=== PATIENT | female | born 1955 | race Caucasian/White ===

== ENCOUNTER 2020-01-09 15:14 | Emergency (ER) | payer MEDICARE ==
[~2020-01-09] VITALS: Ht 160 cm; Wt 99.3 kg
[2020-01-09] MEDS ORDERED: SODIUM CHLORIDE 0.9% 1000ML 1,000 ML IV STA (15:32)
[2020-01-09] MEDS ORDERED: MORPHINE SULFATE 2 MG/ML SYR 1ML IV STA (15:32)
[2020-01-09] MEDS ORDERED: ONDANSETRON HCL INJ 2MG/ML 2ML 2 MG/ML VIAL IV NR (15:45)
[2020-01-09 16:20] LABS: BASOPHILS # (AUTO) 0.1 (0.0-0.1); BASOPHILS % 0.4 % (0.0-1.0); EOSINOPHILS # (AUTO) 0.4 (0.0-0.4); EOSINOPHILS % 3.2 % (0.0-6.0); HEMATOCRIT 45.9 % (34.2-44.1); HEMOGLOBIN 15.6 g/dL (12.0-16.0); LYMPHOCYTES # (AUTO) 3.2 (1.0-3.2); LYMPHOCYTES % 28.8 % (18.0-39.1); MEAN CORPUSCULAR HEMOGLOBIN 31.1 pg (28-32); MEAN CORPUSCULAR VOLUME 91.4 fL (81-99); MONOCYTES # (AUTO) 0.9 (0.2-0.8); MONOCYTES % 8.3 % (4.4-11.3); NEUTROPHILS # (AUTO) 6.6 (2.1-6.9); NEUTROPHILS % 58.9 % (38.7-80.0); PLATELET COUNT 298 x10e3/uL (140-360); RED BLOOD COUNT 5.02 x10e6/uL (3.6-5.1); RED CELL DISTRIBUTION WIDTH 12.2 % (11.7-14.4)
[2020-01-09 16:28] LABS: CLARITY,URINE SL CLOUDY (CLEAR); COLOR,URINE YELLOW (YELLOW)
[2020-01-09 16:29] LABS: BILIRUBIN,URINE NEGATIVE (NEGATIVE); KETONES,URINE NEGATIVE (NEGATIVE); LEUKOCYTE ESTERASE ,URINE TRACE (NEGATIVE); NITRITE,URINE NEGATIVE (NEGATIVE); PROTEIN,URINE DIPSTICK NEGATIVE (NEGATIVE); URINE UROBILINOGEN 1 mg/dL (0.2 - 1)
[2020-01-09 16:31] LABS: BACTERIA,URINE RARE /HPF; EPITHELIAL CELLS,URINE FEW /LPF; RBC,URINE 0-5 /HPF (0-5); WBC,URINE (MAN) 0-5 /HPF (0-5)
[2020-01-09 16:32] LABS: INR 0.85
[2020-01-09 16:37] LABS: ALANINE AMINOTRANSFERASE 13 IU/L (0-55); ALBUMIN 3.7 g/dL (3.5-5.0); ALBUMIN/GLOBULIN RATIO 0.9 (0.8-2.0); ALKALINE PHOSPHATASE 113 IU/L (40-150); ANION GAP 16.1 mmol/L (8-16); BLOOD UREA NITROGEN 17 mg/dL (7-26); BUN/CREATININE RATIO 20 (6-25); CALCIUM 8.7 mg/dL (8.4-10.2); CARBON DIOXIDE 27 mmol/L (22-29); CHLORIDE 102 mmol/L (98-107); CREATININE, SERUM 0.87 mg/dL (0.57-1.11); EST GLOMERULAR FILTRATION RATE > 60 ML/MIN (60-); GLUCOSE 126 mg/dL (74-118); LIPASE 25 U/L (8-78); POTASSIUM 4.1 mmol/L (3.5-5.1); SODIUM 141 mmol/L (136-145)
[2020-01-09] MEDS ORDERED: SODIUM CHLORIDE 0.9% 50ML 50 ML ONE (17:03)
[2020-01-09] MEDS ORDERED: IOPAMIDOL 370 MG/ML 200 ML INFUS..BTL INJ ONE (17:03)
--- NOTE | 2020-01-09 17:09 | Emergency Department Note ---
History of Present Illnes History of Present Illness Chief Complaint: Abdominal Complaints History of Present Illness This is a 64 year old female X 1 WEEK EXCORIATION ON TOP OF UROSTOMY DRESSING. STATES, "IT STARTED OFF 3 BLISTERS". SHARP, DEEP PAIN THAT RUNS FROM FRONT OF ABDOMEN THROUGH TO THE BACK. 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 Any updates have been documented here. Past Medical History Recent Fever: No Clinical Suspicion of Infectio: No New/Unexplained Change in Ment: No Past Medical History: Hypertension Past Surgical History: Cholecysctectomy, Appendectomy, Hysterectomy Other Surgery: UROSTOMY Social History Smoking Cessation: Never Smoker Counseling Performed: No Alcohol Use: None Any Illegal Drug Use: No Physically hurt or threatened: No Family History Family history of heart diseas: No Other Any Pre-Existing Lines (PICC,: No Review of Systems Review of Systems Constitutional: Reports no symptoms EENTM: Reports no symptoms Cardiovascular: Reports no symptoms Respiratory: Reports no symptoms Gastrointestinal: Reports as per HPI Genitourinary: Reports no symptoms Musculoskeletal: Reports no symptoms Integumentary: Reports as per HPI Neurological: Reports no symptoms Psychological: Reports no symptoms Endocrine: Reports no symptoms Hematological/Lymphatic: Reports no symptoms Physical Exam Related Data Triage Vital Signs Vital Signs Date Time Temp Pulse Resp B/P (MAP) Pulse Ox O2 Delivery O2 Flow Rate FiO2 01/09/20 15:23 97.9 86 18 157/72 98 Room Air Vital signs reviewed: Yes Physical Exam CONSTITUTIONAL Constitutional: Present well-developed, Present well-nourished, Present morbidly obese HENT HENT: Present normocephalic, Present atraumatic, Present oropharynx clear/moist, Present nose normal HENT L/R: Present left ext ear normal, Present right ext ear normal EYES Eyes: Reports PERRL, Reports conjunctivae normal NECK Neck: Present ROM normal PULMONARY Pulmonary: Present effort normal, Present breath sounds normal CARDIOVASCULAR Cardiovascular: Present regular rhythm, Present heart sounds normal, Present capillary refill normal, Present normal rate GASTROINTESTINAL Abdominal: Present soft, Present bowel sounds normal, Present other (ERYTHEMA AT SUPERIOR BORDER OF ILEOSTOMY BAG WITH TENDERNESS); Absent guarding GENITOURINARY Genitourinary: Present exam deferred SKIN Skin: Present warm, Present dry MUSCULOSKELETAL Musculoskeletal: Present ROM normal NEUROLOGICAL Neurological: Present alert, Present oriented x 3, Present no gross motor or sensory deficits PSYCHOLOGICAL Psychological: Present mood/affect normal, Present judgement normal Results Laboratory Result Diagram: 01/09/20 1500 01/09/20 1500 Laboratory Laboratory Tests Test 01/09/20 15:00 White Blood Count 11.15 x10e3/uL (4.8-10.8) Red Blood Count 5.02 x10e6/uL (3.6-5.1) Hemoglobin 15.6 g/dL (12.0-16.0) Hematocrit 45.9 % (34.2-44.1) Mean Corpuscular Volume 91.4 fL (81-99) Mean Corpuscular Hemoglobin 31.1 pg (28-32) Mean Corpuscular Hemoglobin Concent 34.0 g/dL (31-35) Red Cell Distribution Width 12.2 % (11.7-14.4) Platelet Count 298 x10e3/uL (140-360) Neutrophils (%) (Auto) 58.9 % (38.7-80.0) Lymphocytes (%) (Auto) 28.8 % (18.0-39.1) Monocytes (%) (Auto) 8.3 % (4.4-11.3) Eosinophils (%) (Auto) 3.2 % (0.0-6.0) Basophils (%) (Auto) 0.4 % (0.0-1.0) Neutrophils # (Auto) 6.6 (2.1-6.9) Lymphocytes # (Auto) 3.2 (1.0-3.2) Monocytes # (Auto) 0.9 (0.2-0.8) Eosinophils # (Auto) 0.4 (0.0-0.4) Basophils # (Auto) 0.1 (0.0-0.1) Absolute Immature Granulocyte (auto 0.05 x10e3/uL (0-0.1) Prothrombin Time 12.0 seconds (11.9-14.5) Prothromb Time International Ratio 0.85 Activated Partial Thromboplast Time 28.0 seconds (23.8-35.5) Urine Color Yellow (YELLOW) Urine Clarity Sl cloudy (CLEAR) Urine pH 7.5 (5 - 7) Urine Specific [place] 1.025 (1.010-1.025) Urine Protein Negative (NEGATIVE) Urine Glucose (UA) Negative (NEGATIVE) Urine Ketones Negative (NEGATIVE) Urine Blood Negative (NEGATIVE) Urine Nitrite Negative (NEGATIVE) Urine Bilirubin Negative (NEGATIVE) Urine Urobilinogen 1 mg/dL (0.2 - 1) Urine Leukocyte Esterase Trace (NEGATIVE) Urine RBC 0-5 /HPF (0-5) Urine WBC 0-5 /HPF (0-5) Urine Epithelial Cells Few /LPF (NONE) Urine Bacteria Rare /HPF (NONE) Sodium Level 141 mmol/L (136-145) Potassium Level 4.1 mmol/L (3.5-5.1) Chloride Level 102 mmol/L (98-107) Carbon Dioxide Level 27 mmol/L (22-29) Anion Gap 16.1 mmol/L (8-16) Blood Urea Nitrogen 17 mg/dL (7-26) Creatinine 0.87 mg/dL (0.57-1.11) Estimat Glomerular Filtration Rate > 60 ML/MIN (60-) BUN/Creatinine Ratio 20 (6-25) Glucose Level 126 mg/dL (74-118) Calcium Level 8.7 mg/dL (8.4-10.2) Total Bilirubin 0.2 mg/dL (0.2-1.2) Aspartate Amino Transf (AST/SGOT) 11 IU/L (5-34) Alanine Aminotransferase (ALT/SGPT) 13 IU/L (0-55) Alkaline Phosphatase 113 IU/L (40-150) Total Protein 7.6 g/dL (6.5-8.1) Albumin 3.7 g/dL (3.5-5.0) Globulin 3.9 g/dL (2.3-3.5) Albumin/Globulin Ratio 0.9 (0.8-2.0) Lipase 25 U/L (8-78) Lab results reviewed: Yes Imaging Imaging results reviewed: Yes Impressions CT ABD/PELVIS: IMPRESSION: 1. Bilateral diverting urostomy with no evidence of hydroureteronephrosis. No obstructive renal or ureteral stones. Correlate with urinalysis for infection and consider urology consultation. 2. Post interval changes of ileostomy. No evidence of bowel obstruction or inflammation. No acute abdominopelvic abdomen was identified. 3. An indeterminate 3.8 x 2.0 cm right adrenal nodule which measures [address] or MRI of the abdomen (adrenal mass protocol) for further characterization. 4. Hepatic steatosis. Signed by: Jayro Cardona MD on 01/09/2020 6:13 PM Assessment & Plan Medical Decision Making MDM ABD PAIN - APPEARS TO BE LOCAL TO UROSTOMY BAG WITH EXCORIATED/MACERATED SKIN WHERE HER PANNUS FOLDS OVER AT TOP EDGE OF UROSTOMY WAFER - CHECK CBC, CHEM, CT ABD/PELVIS, UA/CX - R/O COLITIS, INTRA-ABDOMINAL INFECTION/ABSCESS, CELLULITIS/FUNGAL INFECTION OF SKIN, UTI/PYELO Reassessment Reassessment DC HOME, NYSTATIN/TAC CREAM TO AREA BID, KEFLEX 500 QID X 10 DAYS, F/U PCP, RTED PRN Assessment & Plan Final Impression: (1) Intertrigo (2) Cellulitis Depart Disposition: HOME, SELF-CARE Last Vital Signs Date Time Temp Pulse Resp B/P (MAP) Pulse Ox O2 Delivery O2 Flow Rate FiO2 01/09/20 15:23 97.9 86 18 157/72 98 Room Air Medications in the ED Morphine Sulfate 4 mg ONCE STAT IV Last administered on 01/09/20at 16:30; Admin Dose 4 MG; Start 01/09/20 at 15:32; Stop 01/09/20 at 15:35; Status DC Ondansetron HCl 4 mg ONCE IV Last administered on 01/09/20at 16:37; Admin Dose 4 MG; Start 01/09/20 at 15:45; Stop 01/09/20 at 16:59; Status DC Sodium Chloride 1,000 ml @ 0 mls/hr Q0M STAT IV Last administered on 01/09/20at 16:36; Admin Dose 999 MLS/HR; Start 01/09/20 at 15:32; Stop 01/09/20 at 15:34; Status DC Sodium Chloride [address]-MED ONCE .ROUTE ; Start 01/09/20 at 17:03; Stop 01/09/20 at 16:56; Status DC Iopamidol 74,000 mg STK-MED ONCE INJ ; Start 01/09/20 at 17:03; Stop 01/09/20 at 16:56; Status DC MERLE HATHAWAY MD Jan 09, 2020 17:09
--- NOTE | 2020-01-09 18:17 | Diagnostic Imaging Report ---
EXAM: CT Abdomen and Pelvis WITH contrast INDICATION: ^DIVERTING UROSTOMY, RIGHT ABD PAIN/FLANK PAIN ^[id number] ^[id number] COMPARISON: None. TECHNIQUE: Abdomen and pelvis were scanned utilizing a multidetector helical scanner from the lung base to the pubic symphysis after administration of IV contrast. Coronal and sagittal reformations were obtained. Routine protocol was performed. Scan was performed when during portal venous phase. IV CONTRAST: 100 mL of Isovue 370 ORAL CONTRAST: None COMPLICATIONS: None RADIATION DOSE: Total DLP: 814 mGy*cm Estimated effective dose: (DLP x 0.015 x size factor) mSv CTDIvol has been reviewed. It is below the limits set by the Radiation Protocol Committee (RPC). Dose modulation, iterative reconstruction, and/or weight based adjustment of the mA/kV was utilized to reduce the radiation dose to as low as reasonably achievable. FINDINGS: LINES and TUBES: None. LOWER THORAX: Unremarkable HEPATOBILIARY: The liver is diffuse hypodense compared to the spleen, consistent with diffuse hepatic diffuse hepatic steatosis. No focal hepatic lesions. There is intra- and extra- hepatic biliary dilation likely post cholecystectomy reservoir effect. GALLBLADDER: There are cholecystectomy clips. SPLEEN: No splenomegaly. PANCREAS: No focal masses or ductal dilatation. ADRENALS: There is a 3.8 x 2.0 cm right adrenal nodule which measures 51 HU. The left adrenal gland is normal. KIDNEYS/URETERS: Kidneys enhance symmetrically. No hydronephrosis. 8 mm cyst in the inferior pole of the left kidney. Otherwise no cystic or solid mass lesions. The bilateral ureters are connected to small bowel loop, compatible with diverting urostomy. GI TRACT: There are post surgical changes of right lower quadrant ileostomy. No abnormal distention, wall thickening, or evidence of bowel obstruction. Appendix is normal. PELVIC ORGANS/BLADDER: The urinary bladder is not seen, likely surgically removed.. LYMPH NODES: No lymphadenopathy. VESSELS: There is moderate atherosclerotic disease in the aorta and major arterial branches. PERITONEUM / RETROPERITONEUM: No free air or fluid. BONES: There are degenerative changes in the spine with grade 1 retrolisthesis of L2 on L3. SOFT TISSUES: Unremarkable. IMPRESSION: 1. Bilateral diverting urostomy with no evidence of hydroureteronephrosis. No obstructive renal or ureteral stones. Correlate with urinalysis for infection and consider urology consultation. 2. Post interval changes of ileostomy. No evidence of bowel obstruction or inflammation. No acute abdominopelvic abdomen was identified. 3. An indeterminate 3.8 x 2.0 cm right adrenal nodule which measures [address] or MRI of the abdomen (adrenal mass protocol) for further characterization. 4. Hepatic steatosis. Signed by: Jayro Cardona MD on 01/09/2020 6:13 PM
== END 2020-01-09 18:49 | disposition home or self-care (01) ==
LOC: ER 15:26
DX: L03.311 Cellulitis of abdominal wall (principal); I10 Essential (primary) hypertension; Z93.6 Other artificial openings of urinary tract status
CPT/HCPCS: 36415; 74177; 80053; 81001; 83690; 85025; 85610; 85730; 87040; 87086; 87186; 99284; J2270; J2405; J7030; Q9967

== ENCOUNTER → 2020-04-03 | Emergency (ER) | payer MEDICARE ==
[~2020-04-03] VITALS: Ht 160 cm; Wt 99.3 kg
== END | disposition home or self-care (01) ==
LOC: ER 13:45
DX: J40 Bronchitis, not specified as acute or chronic (principal); R05 Cough; I10 Essential (primary) hypertension; J44.9 Chronic obstructive pulmonary disease, unspecified; F17.210 Nicotine dependence, cigarettes, uncomplicated
CPT/HCPCS: 99283

== ENCOUNTER 2020-05-09 15:50 | Inpatient (IN) | payer MEDICARE ==
[~2020-05-09] VITALS: Ht 160 cm; Wt 99.3 kg
[2020-05-09 16:21] LABS: BASOPHILS # (AUTO) 0.1 (0.0-0.1); BASOPHILS % 0.7 % (0.0-1.0); EOSINOPHILS # (AUTO) 0.7 (0.0-0.4); EOSINOPHILS % 8.2 % (0.0-6.0); HEMATOCRIT 34.8 % (34.2-44.1); HEMOGLOBIN 11.5 g/dL (12.0-16.0); LYMPHOCYTES # (AUTO) 2.9 (1.0-3.2); LYMPHOCYTES % 36.2 % (18.0-39.1); MEAN CORPUSCULAR HEMOGLOBIN 31.5 pg (28-32); MEAN CORPUSCULAR VOLUME 95.3 fL (81-99); MONOCYTES # (AUTO) 0.7 (0.2-0.8); MONOCYTES % 8.7 % (4.4-11.3); NEUTROPHILS # (AUTO) 3.7 (2.1-6.9); NEUTROPHILS % 45.8 % (38.7-80.0); PLATELET COUNT 210 x10e3/uL (140-360); RED BLOOD COUNT 3.65 x10e6/uL (3.6-5.1); RED CELL DISTRIBUTION WIDTH 12.6 % (11.7-14.4)
[2020-05-09 16:39] LABS: ALBUMIN 3.1 g/dL (3.5-5.0); ANION GAP 15.4 mmol/L (8-16); CALCIUM 7.7 mg/dL (8.4-10.2); CREATININE, SERUM 1.63 mg/dL (0.57-1.11); POTASSIUM 4.4 mmol/L (3.5-5.1)
[2020-05-09] MEDS ORDERED: SODIUM CHLORIDE 0.9% 1000ML 1,000 ML IV SCH (16:45)
[2020-05-09] MEDS ORDERED: ATROPINE SULFATE 1 MG/ML VIAL IV ONE (17:15)
[2020-05-09] MEDS ORDERED: CALCIUM GLUCONATE 10% INJ 9.3 MEQ in SODIUM CHLORIDE 0.9% 100 ML 100 ML IV ONE (17:30)
[2020-05-09] MEDS ORDERED: CEFTRIAXONE SOD 1 GM/50 ML BAG IV ONE (17:45)
[2020-05-09] MEDS ORDERED: CEFTRIAXONE SOD 1 GM in SODIUM CHLORIDE 0.9% 50ML 50 ML IV ONE ×2 (18:00→18:30)
[2020-05-09 18:02] LABS: CLARITY,URINE CLOUDY (CLEAR); COLOR,URINE AMBER (YELLOW); KETONES,URINE TRACE (NEGATIVE); LEUKOCYTE ESTERASE ,URINE TRACE (NEGATIVE); NITRITE,URINE NEGATIVE (NEGATIVE); PROTEIN,URINE DIPSTICK 2+ (NEGATIVE); URINE UROBILINOGEN 1 mg/dL (0.2 - 1)
[2020-05-09 18:13] LABS: BACTERIA,URINE MANY /HPF
[2020-05-09 18:14] LABS: AMORPHOUS SEDIMENT,URINE FEW (FEW)
[2020-05-09] MEDS ORDERED: ALBUTEROL/IPRATROPIUM 3 ML NEB NEB ONE (20:00)
[2020-05-09] MEDS ORDERED: CARVEDILOL6.25 MG PO (22:49)
[2020-05-09] MEDS ORDERED: NABUMETONE750 MG PO (22:49)
[2020-05-09] MEDS ORDERED: PROAIR RESPICL90 MCG INH (22:49)
[2020-05-09] MEDS ORDERED: LOSARTAN POTASS50 MG PO (22:49)
[2020-05-09] MEDS ORDERED: ATORVASTATIN CA80 MG PO (22:49)
[2020-05-09] MEDS ORDERED: DULOXETINE HCL60 MG PO (22:49)
[2020-05-09] MEDS ORDERED: TIZANIDINE HCL4 MG PO (22:49)
[2020-05-09] MEDS ORDERED: LISINOPRIL40 MG PO (22:49)
[2020-05-09] MEDS ORDERED: CLOPIDOGREL75 MG PO (22:49)
[2020-05-09 23:20] VITALS: BP 150/63
[2020-05-09] MEDS ORDERED: CLONAZEPAM0.5 MG PO (23:30)
[2020-05-10] VITALS (15 sets, daily range): BP systolic 112–188; BP diastolic 53–76
[2020-05-10] MEDS ORDERED: MAGNESIUM/ALUMINUM/SIMETHICONE 30 ML UDC PO PRN (00:30)
[2020-05-10] MEDS ORDERED: MAGNESIUM HYDROXIDE 30 ML UDC PO PRN (00:30)
[2020-05-10] MEDS ORDERED: ZOLPIDEM TARTRATE 5 MG TAB PO PRN (00:30)
[2020-05-10] MEDS: GUAIFENESIN 200 MG/10 ML UDC PO PRN ×3 (01:12→19:35)
[2020-05-10 04:37] LABS: BASOPHILS # (AUTO) 0.1 (0.0-0.1); BASOPHILS % 0.7 % (0.0-1.0); EOSINOPHILS # (AUTO) 0.9 (0.0-0.4); EOSINOPHILS % 9.6 % (0.0-6.0); HEMATOCRIT 36.9 % (34.2-44.1); HEMOGLOBIN 12.3 g/dL (12.0-16.0); LYMPHOCYTES # (AUTO) 3.3 (1.0-3.2); LYMPHOCYTES % 36.8 % (18.0-39.1); MEAN CORPUSCULAR HEMOGLOBIN 31.5 pg (28-32); MEAN CORPUSCULAR HGB CONC 33.3 g/dL (31-35); MEAN CORPUSCULAR VOLUME 94.4 fL (81-99); MONOCYTES # (AUTO) 0.8 (0.2-0.8); MONOCYTES % 8.7 % (4.4-11.3); NEUTROPHILS % 43.8 % (38.7-80.0); PLATELET COUNT 220 x10e3/uL (140-360); RED BLOOD COUNT 3.91 x10e6/uL (3.6-5.1); RED CELL DISTRIBUTION WIDTH 12.5 % (11.7-14.4)
[2020-05-10 04:53] LABS: ANION GAP 16.4 mmol/L (8-16); CALCIUM 7.8 mg/dL (8.4-10.2); CREATININE, SERUM 1.04 mg/dL (0.57-1.11); POTASSIUM 4.4 mmol/L (3.5-5.1)
[2020-05-10] MEDS: ACETAMINOPHEN 325 MG TAB PO PRN (07:16)
[2020-05-10] MEDS ORDERED: NABUMETONE PO SCH (07:30)
[2020-05-10] MEDS: CARVEDILOL 3.125 MG TAB PO SCH ×2 (08:08→17:00)
[2020-05-10] MEDS: LOSARTAN POTASSIUM 25 MG TAB PO SCH (08:13)
[2020-05-10] MEDS: DULOXETINE HCL 30 MG DELAYED RELEASE PO SCH (09:13)
[2020-05-10] MEDS: CLOPIDOGREL BISULFATE 75 MG TAB PO SCH (09:13)
[2020-05-10] MEDS: TIZANIDINE HCL 4 MG TAB PO SCH ×2 (09:14→17:13)
[2020-05-10] MEDS: LISINOPRIL 20 MG TAB PO SCH (09:15)
[2020-05-10] MEDS: ALBUTEROL SULFATE HFA 8GM INHALATION AEROSOL INH PRN ×3 (10:48→19:40)
[2020-05-10] MEDS: NABUMETONE 750 MG PO SCH (11:40)
[2020-05-10] MEDS: CEFAZOLIN SOD 1 GM/NS 50ML 50 ML IV SCH ×2 (11:40→22:33)
[2020-05-10] MEDS ORDERED: SODIUM CHLORIDE 0.9% 50ML 50 ML ONE (11:52)
[2020-05-10] MEDS: ATORVASTATIN 40 MG TAB PO SCH (21:00)
[2020-05-10] MEDS: CLONAZEPAM 0.5 MG TAB PO SCH (21:00)
[2020-05-10] MEDS: ALBUTEROL/IPRATROPIUM 3 ML NEB NEB PRN (23:30)
[2020-05-11] VITALS (9 sets, daily range): BP systolic 94–209; BP diastolic 52–81
[2020-05-11] MEDS: GUAIFENESIN 200 MG/10 ML UDC PO PRN ×3 (01:51→23:18)
[2020-05-11] MEDS: ACETAMINOPHEN 325 MG TAB PO PRN (01:58)
[2020-05-11] MEDS: ALBUTEROL/IPRATROPIUM 3 ML NEB NEB PRN ×4 (04:15→21:05)
[2020-05-11] MEDS: LISINOPRIL 20 MG TAB PO SCH ×2 (07:43→16:28)
[2020-05-11] MEDS: LOSARTAN POTASSIUM 25 MG TAB PO SCH (07:46)
[2020-05-11] MEDS: CARVEDILOL 3.125 MG TAB PO SCH (09:00)
[2020-05-11] MEDS: NABUMETONE 750 MG PO SCH ×2 (09:43→16:28)
[2020-05-11] MEDS: DULOXETINE HCL 30 MG DELAYED RELEASE PO SCH (09:44)
[2020-05-11] MEDS: CLOPIDOGREL BISULFATE 75 MG TAB PO SCH (09:44)
[2020-05-11] MEDS: TIZANIDINE HCL 4 MG TAB PO SCH ×2 (09:44→16:29)
[2020-05-11] MEDS ORDERED: CLONIDINE HCL 0.1 MG TAB PO PRN (10:15)
[2020-05-11] MEDS: CEFAZOLIN SOD 1 GM/NS 50ML 50 ML IV SCH ×2 (10:54→21:18)
[2020-05-11] MEDS: CARVEDILOL 12.5 MG TAB PO SCH (16:28)
[2020-05-11] MEDS: ALBUTEROL SULFATE HFA 8GM INHALATION AEROSOL INH PRN (16:29)
[2020-05-11] MEDS: CLONAZEPAM 0.5 MG TAB PO SCH (21:16)
[2020-05-11] MEDS: ATORVASTATIN 40 MG TAB PO SCH (21:16)
[2020-05-11] MEDS ORDERED: METHYLPREDNISOLONE SOD SUCC 40 MG/ML VIAL 1ML IV ONE (22:00)
[2020-05-12] VITALS (9 sets, daily range): BP systolic 90–177; BP diastolic 47–88
[2020-05-12] MEDS: ALBUTEROL/IPRATROPIUM 3 ML NEB NEB PRN ×2 (01:00→09:24)
[2020-05-12] MEDS: ACETAMINOPHEN 325 MG TAB PO PRN (04:28)
[2020-05-12] MEDS: GUAIFENESIN 200 MG/10 ML UDC PO PRN (06:09)
[2020-05-12] MEDS: NABUMETONE 750 MG PO SCH ×2 (08:54→16:39)
[2020-05-12] MEDS: CLOPIDOGREL BISULFATE 75 MG TAB PO SCH (08:56)
[2020-05-12] MEDS: LISINOPRIL 20 MG TAB PO SCH ×2 (08:57→16:34)
[2020-05-12] MEDS: LOSARTAN POTASSIUM 25 MG TAB PO SCH (09:00)
[2020-05-12] MEDS: TIZANIDINE HCL 4 MG TAB PO SCH ×2 (09:00→16:39)
[2020-05-12] MEDS: CARVEDILOL 12.5 MG TAB PO SCH ×2 (09:00→16:34)
[2020-05-12] MEDS: DULOXETINE HCL 30 MG DELAYED RELEASE PO SCH (09:01)
[2020-05-12] MEDS ORDERED: AZITHROMYCIN 250 MG TAB PO NR (10:45)
[2020-05-12] MEDS: ALBUTEROL/IPRATROPIUM 3 ML NEB NEB SCH ×4 (11:00→23:00)
[2020-05-12] MEDS: CEFAZOLIN SOD 1 GM/NS 50ML 50 ML IV SCH ×2 (11:09→22:30)
[2020-05-12 13:45] LABS: BASOPHILS % 0.2 % (0.0-1.0); EOSINOPHILS % 0.1 % (0.0-6.0); HEMATOCRIT 39.4 % (34.2-44.1); HEMOGLOBIN 13.4 g/dL (12.0-16.0); LYMPHOCYTES # (AUTO) 1.7 (1.0-3.2); LYMPHOCYTES % 11.6 % (18.0-39.1); MEAN CORPUSCULAR HEMOGLOBIN 31.2 pg (28-32); MEAN CORPUSCULAR VOLUME 91.8 fL (81-99); MONOCYTES # (AUTO) 0.5 (0.2-0.8); MONOCYTES % 3.7 % (4.4-11.3); NEUTROPHILS # (AUTO) 12.3 (2.1-6.9); NEUTROPHILS % 83.6 % (38.7-80.0); PLATELET COUNT 284 x10e3/uL (140-360); RED BLOOD COUNT 4.29 x10e6/uL (3.6-5.1); RED CELL DISTRIBUTION WIDTH 12.3 % (11.7-14.4)
[2020-05-12 14:35] LABS: ALBUMIN 3.5 g/dL (3.5-5.0); ALBUMIN/GLOBULIN RATIO 0.9 (0.8-2.0); ANION GAP 19.9 mmol/L (8-16); CALCIUM 8.7 mg/dL (8.4-10.2); CREATININE, SERUM 1.1 mg/dL (0.57-1.11); POTASSIUM 4.9 mmol/L (3.5-5.1)
[2020-05-12 14:51] LABS: ABG HCO3 29 mmol/L (22-26); ABG PCO2 45 mmHg (35-45); ABG PH 7.42 (7.35-7.45); ABG PO2 78 mmHg (80-105); ABG TCO2 30
[2020-05-12] MEDS ORDERED: SODIUM CHLORIDE 0.9% 1000ML 1,000 ML ONE (18:05)
[2020-05-12] MEDS ORDERED: SODIUM CHLORIDE 0.9% 1000ML 1,000 ML IV SCH (18:15)
[2020-05-12] MEDS: SODIUM CHLORIDE 0.9% 1000ML 1,000 ML IV SCH (18:29)
[2020-05-12] MEDS: BUDESONIDE/FORMOTEROL 160/4.5MCG INHALER INH SCH (19:00)
[2020-05-12 19:21] LABS: BASOPHILS % 0.2 % (0.0-1.0); EOSINOPHILS % 0.3 % (0.0-6.0); HEMOGLOBIN 11.9 g/dL (12.0-16.0); LYMPHOCYTES # (AUTO) 2.7 (1.0-3.2); LYMPHOCYTES % 18.7 % (18.0-39.1); MEAN CORPUSCULAR HEMOGLOBIN 31.5 pg (28-32); MEAN CORPUSCULAR VOLUME 92.6 fL (81-99); MONOCYTES # (AUTO) 1.3 (0.2-0.8); MONOCYTES % 8.8 % (4.4-11.3); NEUTROPHILS # (AUTO) 10.2 (2.1-6.9); NEUTROPHILS % 71.2 % (38.7-80.0); PLATELET COUNT 236 x10e3/uL (140-360); RED BLOOD COUNT 3.78 x10e6/uL (3.6-5.1); RED CELL DISTRIBUTION WIDTH 12.2 % (11.7-14.4)
[2020-05-12 19:39] LABS: ANION GAP 15.7 mmol/L (8-16); CALCIUM 8.1 mg/dL (8.4-10.2); CREATININE, SERUM 1.08 mg/dL (0.57-1.11); POTASSIUM 4.7 mmol/L (3.5-5.1)
[2020-05-12] MEDS ORDERED: CEFEPIME HCL 1GM 1 GM in SODIUM CHLORIDE 0.9% 50ML 50 ML IV ONE (20:00)
[2020-05-12] MEDS: ATORVASTATIN 40 MG TAB PO SCH (20:36)
[2020-05-12] MEDS: METHYLPREDNISOLONE SOD SUCC 40 MG/ML VIAL 1ML IV SCH (20:37)
[2020-05-12] MEDS: CLONAZEPAM 0.5 MG TAB PO SCH (21:00)
[2020-05-13] VITALS (9 sets, daily range): BP systolic 124–179; BP diastolic 55–82
[2020-05-13] MEDS ORDERED: CEFEPIME 1GM/NS 0.9% 50 ML 50 ML IV SCH (00:15)
[2020-05-13] MEDS ORDERED: CEFEPIME HCL 1GM 1 GM in SODIUM CHLORIDE 0.9% 50ML 50 ML IV ONE (00:30)
[2020-05-13] MEDS: GUAIFENESIN 200 MG/10 ML UDC PO PRN ×2 (01:15→05:38)
[2020-05-13] MEDS: SODIUM CHLORIDE 0.9% 1000ML 1,000 ML IV SCH ×4 (01:22→20:29)
[2020-05-13] MEDS: ALBUTEROL/IPRATROPIUM 3 ML NEB NEB SCH ×3 (03:00→11:30)
[2020-05-13 05:29] LABS: CALCIUM 8.4 mg/dL (8.4-10.2)
[2020-05-13 06:54] LABS: BASOPHILS % 0.2 % (0.0-1.0); EOSINOPHILS % 0.1 % (0.0-6.0); HEMATOCRIT 38.2 % (34.2-44.1); LYMPHOCYTES # (AUTO) 1.7 (1.0-3.2); LYMPHOCYTES % 15.4 % (18.0-39.1); MEAN CORPUSCULAR HEMOGLOBIN 31.9 pg (28-32); MEAN CORPUSCULAR VOLUME 93.6 fL (81-99); MONOCYTES # (AUTO) 0.5 (0.2-0.8); MONOCYTES % 4.2 % (4.4-11.3); NEUTROPHILS # (AUTO) 8.8 (2.1-6.9); NEUTROPHILS % 79.5 % (38.7-80.0); PLATELET COUNT 247 x10e3/uL (140-360); RED BLOOD COUNT 4.08 x10e6/uL (3.6-5.1); RED CELL DISTRIBUTION WIDTH 12.2 % (11.7-14.4)
[2020-05-13] MEDS: BUDESONIDE/FORMOTEROL 160/4.5MCG INHALER INH SCH ×2 (07:00→21:00)
[2020-05-13] MEDS: NABUMETONE 750 MG PO SCH ×2 (09:15→17:29)
[2020-05-13] MEDS: LOSARTAN POTASSIUM 25 MG TAB PO SCH (09:17)
[2020-05-13] MEDS: CARVEDILOL 12.5 MG TAB PO SCH ×2 (09:17→17:00)
[2020-05-13] MEDS: LISINOPRIL 20 MG TAB PO SCH ×2 (09:18→17:00)
[2020-05-13] MEDS: DULOXETINE HCL 30 MG DELAYED RELEASE PO SCH (09:18)
[2020-05-13] MEDS: CLOPIDOGREL BISULFATE 75 MG TAB PO SCH (09:18)
[2020-05-13] MEDS: AZITHROMYCIN 250 MG TAB PO SCH (09:19)
[2020-05-13] MEDS: TIZANIDINE HCL 4 MG TAB PO SCH ×2 (09:19→17:00)
[2020-05-13] MEDS: CEFAZOLIN SOD 1 GM/NS 50ML 50 ML IV SCH ×2 (09:20→23:35)
[2020-05-13] MEDS: METHYLPREDNISOLONE SOD SUCC 40 MG/ML VIAL 1ML IV SCH ×2 (09:20→22:50)
[2020-05-13] MEDS ORDERED: LISINOPRIL 10 MG TAB PO PRN ×2 (12:30→16:30)
[2020-05-13] MEDS: ATORVASTATIN 40 MG TAB PO SCH (21:00)
[2020-05-13] MEDS: GUAIFENESIN/CODEINE 10 ML CUP PO PRN (21:23)
[2020-05-14] VITALS (7 sets, daily range): BP systolic 95–183; BP diastolic 52–95
[2020-05-14] MEDS: CLONAZEPAM 0.5 MG TAB PO SCH ×2 (00:23→21:00)
[2020-05-14] MEDS: SODIUM CHLORIDE 0.9% 1000ML 1,000 ML IV SCH ×3 (02:15→18:15)
[2020-05-14 06:56] LABS: BASOPHILS % 0.2 % (0.0-1.0); EOSINOPHILS % 0.2 % (0.0-6.0); HEMATOCRIT 38.1 % (34.2-44.1); LYMPHOCYTES # (AUTO) 2.8 (1.0-3.2); LYMPHOCYTES % 21.2 % (18.0-39.1); MEAN CORPUSCULAR HEMOGLOBIN 31.9 pg (28-32); MEAN CORPUSCULAR HGB CONC 34.1 g/dL (31-35); MEAN CORPUSCULAR VOLUME 93.6 fL (81-99); MONOCYTES # (AUTO) 0.8 (0.2-0.8); MONOCYTES % 6.2 % (4.4-11.3); NEUTROPHILS # (AUTO) 9.5 (2.1-6.9); NEUTROPHILS % 71.1 % (38.7-80.0); PLATELET COUNT 261 x10e3/uL (140-360); RED BLOOD COUNT 4.07 x10e6/uL (3.6-5.1); RED CELL DISTRIBUTION WIDTH 12.2 % (11.7-14.4)
[2020-05-14 07:15] LABS: ANION GAP 15.3 mmol/L (8-16); CALCIUM 8.2 mg/dL (8.4-10.2); CREATININE, SERUM 0.96 mg/dL (0.57-1.11); POTASSIUM 4.3 mmol/L (3.5-5.1)
[2020-05-14] MEDS: BUDESONIDE/FORMOTEROL 160/4.5MCG INHALER INH SCH ×2 (08:23→19:36)
[2020-05-14] MEDS: METHYLPREDNISOLONE SOD SUCC 40 MG/ML VIAL 1ML IV SCH (08:47)
[2020-05-14] MEDS: DULOXETINE HCL 30 MG DELAYED RELEASE PO SCH (08:49)
[2020-05-14] MEDS: CARVEDILOL 12.5 MG TAB PO SCH (08:49)
[2020-05-14] MEDS: CLOPIDOGREL BISULFATE 75 MG TAB PO SCH (08:49)
[2020-05-14] MEDS: LISINOPRIL 20 MG TAB PO SCH ×2 (08:50→18:54)
[2020-05-14] MEDS: TIZANIDINE HCL 4 MG TAB PO SCH ×2 (08:51→16:51)
[2020-05-14] MEDS: AZITHROMYCIN 250 MG TAB PO SCH (08:51)
[2020-05-14] MEDS: NABUMETONE 750 MG PO SCH ×2 (09:03→16:49)
[2020-05-14] MEDS: GUAIFENESIN 200 MG/10 ML UDC PO PRN ×2 (10:34→22:54)
[2020-05-14] MEDS: CEFAZOLIN SOD 1 GM/NS 50ML 50 ML IV SCH ×2 (10:34→22:54)
[2020-05-14] MEDS ORDERED: ATROPINE SULFATE INJ 0.4 MG/ML VIAL IV NR (11:30)
[2020-05-14] MEDS: ATORVASTATIN 40 MG TAB PO SCH (20:55)
[2020-05-15] VITALS: BP 140/63
[2020-05-15] MEDS: SODIUM CHLORIDE 0.9% 1000ML 1,000 ML IV SCH ×2 (02:15→03:06)
[2020-05-15 04:00] VITALS: BP 163/75
[2020-05-15 07:37] VITALS: BP 168/77
[2020-05-15 07:53] VITALS: BP 168/77
[2020-05-15] MEDS: BUDESONIDE/FORMOTEROL 160/4.5MCG INHALER INH SCH (08:15)
[2020-05-15] MEDS: AZITHROMYCIN 250 MG TAB PO SCH (08:43)
[2020-05-15] MEDS: CLOPIDOGREL BISULFATE 75 MG TAB PO SCH (08:43)
[2020-05-15] MEDS: CEFAZOLIN SOD 1 GM/NS 50ML 50 ML IV SCH (08:43)
[2020-05-15] MEDS: DULOXETINE HCL 30 MG DELAYED RELEASE PO SCH (08:43)
[2020-05-15] MEDS ORDERED: METHYLPREDNISOLONE SOD SUCC 40 MG/ML VIAL 1ML IV SCH (09:00)
[2020-05-15] MEDS: LISINOPRIL 20 MG TAB PO SCH (09:00)
[2020-05-15] MEDS: TIZANIDINE HCL 4 MG TAB PO SCH (09:05)
[2020-05-15] MEDS: NABUMETONE 750 MG PO SCH (09:05)
[2020-05-15] MEDS ORDERED: ALBUTEROL SULF 0.083% NEB SOLN 3 ML NEB NEB ONE (09:10)
[2020-05-15] MEDS ORDERED: ALBUTEROL SULF 0.083% NEB SOLN 3 ML NEB ONE (09:21)
[2020-05-15] MEDS ORDERED: AZITHROMYCIN250 MG PO (10:12)
[2020-05-15] MEDS ORDERED: SYMBICORT 16010.2 GM INH (10:12)
[2020-05-15] MEDS ORDERED: GUAIFENESI100 MG/5 M PO (10:12)
[2020-05-15] MEDS ORDERED: Atorvastatin PO (10:12)
[2020-05-15] MEDS ORDERED: LISINOPRIL20 MG PO (10:12)
[2020-05-15] MEDS ORDERED: PREDNISONE10 MG PO (10:39)
[2020-05-15] MEDS: GUAIFENESIN/CODEINE 10 ML CUP PO PRN (10:52)
[2020-05-15] MEDS: GUAIFENESIN 200 MG/10 ML UDC PO PRN (10:52)
[2020-05-15 11:43] VITALS: BP 113/55
[2020-05-15] MEDS ORDERED: ATORVASTATIN 40 MG TAB PO SCH (17:00)
== END 2020-05-15 14:30 | disposition home or self-care (01) | DRG 872 ==
LOC: ER 16:08 → ERHOLD 17:34 → ICU 23:20 → MED/SURG 05-10 11:26
PROVIDERS: ADMIT Internal Medicine Cardiovascular Disease; ATTEND Internal Medicine Cardiovascular Disease
PROC: 02HV33Z Insertion of Infusion Device into Superior Vena Cava, Percutaneous Approach (ICD-10-PCS; principal; 2020-05-09)
DX: A41.9 Sepsis, unspecified organism (principal); J44.1 Chronic obstructive pulmonary disease with (acute) exacerbation; N17.9 Acute kidney failure, unspecified; I10 Essential (primary) hypertension; G47.30 Sleep apnea, unspecified; Z20.822 Contact with and (suspected) exposure to COVID-19; N30.10 Interstitial cystitis (chronic) without hematuria; N28.1 Cyst of kidney, acquired; D64.9 Anemia, unspecified; Z93.6 Other artificial openings of urinary tract status; F32.9 Major depressive disorder, single episode, unspecified; Z87.891 Personal history of nicotine dependence; E78.00 Pure hypercholesterolemia, unspecified; E83.51 Hypocalcemia; I95.89 Other hypotension
CPT/HCPCS: 36415; 36569; 36600; 70450; 71045; 71046; 74176; 80048; 80053; 81001; 82805; 83605; 83880; 84484; 84550; 85025; 87040; 87086; 93005; 93306; 94060; 94640; 96361; J0610; J0690; J0692; J0696; J2920; J7030; U0002

== ENCOUNTER → 2020-05-29 | Outpatient (CLI) | payer MEDICARE ==
[~2020-05-29] MED LIST: ATORVASTATIN CA80 MG PO; AZITHROMYCIN250 MG PO; Atorvastatin PO; CARVEDILOL6.25 MG PO; CLONAZEPAM0.5 MG PO; CLOPIDOGREL75 MG PO; DULOXETINE HCL60 MG PO; GUAIFENESI100 MG/5 M PO; LISINOPRIL20 MG PO; LISINOPRIL40 MG PO; LOSARTAN POTASS50 MG PO; NABUMETONE750 MG PO; PREDNISONE10 MG PO; PROAIR RESPICL90 MCG INH; SYMBICORT 16010.2 GM INH; TIZANIDINE HCL4 MG PO
== END ==
LOC: MAMMO 08:50
PROVIDERS: ATTEND Family Medicine
DX: Z12.31 Encounter for screening mammogram for malignant neoplasm of breast (principal)
CPT/HCPCS: 77067

== ENCOUNTER → 2020-05-29 | Outpatient (CLI) | payer MEDICARE | LOC: US 08:09 | PROVIDERS: ATTEND Internal Medicine Gastroenterology | DX: B18.2 Chronic viral hepatitis C (principal) | CPT/HCPCS: 76705 ==